=== PATIENT | female | born 1940 | race Caucasian/White ===

== ENCOUNTER → 2021-07-03 | Outpatient (CLI) | payer MEDICARE ==
[2021-07-03 12:05] LABS: HEMOGLOBIN 12.6 g/dL (11.5-16.0); MEAN CORPUSCULAR HEMOGLOBIN 27 pg (25-34); WHITE BLOOD COUNT 7.4 10^3/uL (4.3-11.0)
[2021-07-03 12:06] LABS: BASOPHILS % (AUTO) 1 % (0-10); HEMATOCRIT 40 % (35-52); LYMPHOCYTES % (AUTO) 32 % (12-44); MEAN CORPUSCULAR HGB CONC 32 g/dL (32-36); MEAN CORPUSCULAR VOLUME 85 fL (80-99); MONOCYTES % (AUTO) 11 % (0-12); NEUTROPHILS % (AUTO) 54 % (42-75); PLATELET COUNT 291 10^3/uL (130-400)
[2021-07-03 12:07] LABS: BASOPHILS # (AUTO) 0.1 10^3/uL (0.0-0.1); EOSINOPHILS # (AUTO) 0.2 10^3/uL (0.0-0.3); EOSINOPHILS % (AUTO) 3 % (0-10); LYMPHOCYTES # (AUTO) 2.3 X 10^3 (1.0-4.0); MONOCYTES # (AUTO) 0.8 X 10^3 (0.0-1.0)
[2021-07-03 12:26] LABS: ALBUMIN 4.2 GM/DL (3.2-4.5); BILIRUBIN,TOTAL 0.3 MG/DL (0.1-1.0); CALCIUM 9.3 MG/DL (8.5-10.1); CREATININE SERUM 0.5 MG/DL (0.60-1.30); POTASSIUM 4.1 MMOL/L (3.6-5.0); TOTAL PROTEIN 7.3 GM/DL (6.4-8.2)
[2021-07-03 12:41] LABS: BAND NEUTROPHILS 1 %; BASOPHILS % (MANUAL) 2 %; EOSINOPHILS % (MANUAL) 2 %; LYMPHOCYTES % (MANUAL) 40 %; MONOCYTES % (MANUAL) 9 %; NEUTROPHILS % (MANUAL) 43 %
[2021-07-03 12:42] LABS: ATYPICAL LYMPHOCYTES 3 %
--- NOTE | 2021-07-03 12:49 | Diagnostic Imaging Report ---
INDICATION: Shortness of breath. TIME OF EXAM: 12:06 PM COMPARISON: No prior studies are available for comparison. FINDINGS: The heart size is normal. There is some patchy infiltrate in the right upper and midlung field. There may be minimal infiltrate in the left midlung as well. Minimal infiltrates in the bilateral bases are noted. There is effusion. There is no pneumothorax. IMPRESSION: There are patchy infiltrates in the bilateral lungs suggestive of pneumonia. Dictated by: Dictated on workstation # [id number]
== END ==
LOC: LAB FS 11:43
PROVIDERS: ATTEND Family Medicine
DX: R53.83 Other fatigue (principal); R06.02 Shortness of breath; R91.8 Other nonspecific abnormal finding of lung field
CPT/HCPCS: 36415; 71046; 80053; 85007; 85027; 85379

== ENCOUNTER → 2021-07-03 | Outpatient (CLI) | payer MEDICARE ==
[~2021-07-03] MED LIST: CATHETER FLUSH 10 ML SYR IV PRN; HOLD METFORMIN - RECEIVED CONTRAST 20 ML VIAL IV SCH; IOHEXOL 350 MG/ML 100 ML (OMNIPAQUE 350) VIAL IV ONE; NS 100 ML (IVPB) BAG IV ONE
--- NOTE | 2021-07-03 15:55 | Diagnostic Imaging Report ---
PROCEDURE: CT angiography of the chest with contrast. TECHNIQUE: Multiple contiguous axial images were obtained through the chest after uneventful bolus administration of intravenous contrast. 3D reconstructed CTA MIP acquisitions were also performed. Auto Exposure Controls were utilized during the CT exam to meet ALARA standards for radiation dose reduction. INDICATION: Elevated D-dimer, Covid, infiltrates. COMPARISON: None. FINDINGS: The heart size is normal. Minimal coronary artery disease is present. There is no pericardial effusion. No lymphadenopathy is seen. Pulmonary arteries and aorta are normal. No embolism is identified. Mild to moderate bilateral pulmonary infiltrates are seen. There is no pneumothorax or effusion. Osseous structures are stable. Upper abdominal solid organs demonstrate at least two low density liver lesions of uncertain etiology. The largest measures 8 mm in the right hepatic lobe. Recommend CT abdomen with three-phase imaging. IMPRESSION: 1. Bilateral pulmonary infiltrates compatible with pneumonia. 2. Coronary artery disease. 3. No pulmonary embolism. 4. Two small low density liver lesions of uncertain etiology. Recommend follow-up with three-phase CT abdominal exam. 5. 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 Dictated by: Dictated on workstation # [id number]
== END ==
LOC: RAD FS 15:17
PROVIDERS: ATTEND Family Medicine
DX: I25.10 Atherosclerotic heart disease of native coronary artery without angina pectoris (principal); K76.9 Liver disease, unspecified; I77.4 Celiac artery compression syndrome; R91.8 Other nonspecific abnormal finding of lung field; R79.1 Abnormal coagulation profile
CPT/HCPCS: 71275

== ENCOUNTER → 2021-09-02 | Outpatient (CLI) | payer MEDICARE ==
--- NOTE | 2021-09-02 08:48 | Diagnostic Imaging Report ---
CLINICAL INDICATION: Patient with dyspnea. Follow-up on Covid infection back in April. Patient still short of breath. Exam: Chest x-ray PA and lateral views. Comparisons: Chest x-ray dated 07/03/2021. Findings: There is interval improved aeration of both lungs. There is reticular nodular areas throughout both lungs with some sparing of the lung apices which may represent sequelae from previous infection and/or active infection. There is no pleural effusion or pneumothorax. Pulmonary vasculature and cardiac silhouette within normal limits. There are hypertrophic spurs involving the spine. IMPRESSION: There is interval improved aeration of both lungs with reticulonodular areas seen throughout both lungs. This may represent sequelae from previous infection and/or active infection. Dictated by: Dictated on workstation # [id number]
== END ==
LOC: RAD FS 08:20
PROVIDERS: ATTEND Family Medicine
DX: R06.02 Shortness of breath (principal); Z86.16 Personal history of COVID-19
CPT/HCPCS: 71046

== ENCOUNTER → 2021-11-03 | Outpatient (CLI) | payer MEDICARE ==
--- NOTE | 2021-11-03 10:17 | Diagnostic Imaging Report ---
EXAMINATION: CT abdomen without intravenous contrast. TECHNIQUE: Multiple contiguous axial images were obtained through the abdomen without the administration of intravenous contrast. All CT scans use one or more of the following dose optimizing techniques: automated exposure control, MA and/or KvP adjustment based on patient size and exam type or iterative reconstruction. HISTORY: Liver lesion on prior CT. COMPARISON: None available. FINDINGS: Limited views of the lower thorax show mild basilar atelectasis. There is an 8 mm segment eight liver lesion. There is an 8 mm segment two liver lesion. They are unchanged in size from prior exam. There is no biliary ductal dilation. Gallbladder is normal. Pancreas is normal. Spleen is normal. Adrenal glands are normal. The kidneys are normal. There is no hydronephrosis. Visualized bowel is normal in caliber without obstruction or inflammation. No free fluid or air. No abdominal lymphadenopathy. Aorta is normal in caliber without aneurysm. There are no suspicious osseus lesions. IMPRESSION: 1. Stable small indeterminate liver lesions. Liver protocol CT or MRI would be needed for further characterization. Dictated by: Dictated on workstation # [id number]
== END ==
LOC: RAD FS 09:21
PROVIDERS: ATTEND Family Medicine
DX: K76.9 Liver disease, unspecified (principal)
CPT/HCPCS: 74150